=== PATIENT | male | born 1980 | race Caucasian/White ===

== ENCOUNTER 2018-02-10 07:46 | Day surgery (SDC) | payer BC ==
[~2018-02-10 07:46] MED LIST: LIDOCAINE 2% (SDV) 5 ML INJ
[2018-02-10] MEDS ORDERED: ROPIVACAINE 0.5 % 30 ML VIAL ×2 (09:09→09:42)
[2018-02-10] MEDS ORDERED: MIDAZOLAM 1 MG/ML 2 ML INJ ×2 (09:41→09:43)
[2018-02-10] MEDS ORDERED: hydrALAzine 20 MG INJ IV (10:00)
[2018-02-10] MEDS ORDERED: MIDAZOLAM 1 MG/ML 2 ML INJ IV (10:00)
[2018-02-10] MEDS ORDERED: METOCLOPRAMIDE 10 MG INJ IV (10:00)
[2018-02-10] MEDS ORDERED: DIPHENHYDRAMINE 50 MG INJ IV (10:00)
[2018-02-10] MEDS ORDERED: HYDROmorphONE (0.2 MG/ML) 10ML SYG IV ×3 (10:00)
[2018-02-10] MEDS ORDERED: FENTAnyl 50 MCG/ML VIAL IV ×3 (10:00)
[2018-02-10] MEDS ORDERED: LABETALOL HCL 20MG INJ IV (10:00)
[2018-02-10] MEDS ORDERED: OXYCODONE/ACETAMINOPHEN (5/325) TAB PO ×2 (10:00)
[2018-02-10] MEDS ORDERED: ALBUTEROL 0.083% (NEB) 2.5 MG/3 ML AMP HHN (10:00)
[2018-02-10] MEDS ORDERED: EPHEDrine SULFATE 50 MG/5 ML SYG IV (10:00)
[2018-02-10] MEDS: POLYMYXIN/BACITRACIN 1L IRRIG (12:20)
[2018-02-10] MEDS ORDERED: LABETALOL HCL 20MG INJ (14:08)
[2018-02-10] MEDS: VANCOMYCIN 1 GM INJ (14:30)
[2018-02-10] MEDS: NEOMYC/POLYMYX/BACIT 30 GM OINT (14:30)
[2018-02-10] MEDS ORDERED: SUGAMMADEX SODIUM 200 MG/2 ML VIAL IV (14:36)
[2018-02-10] MEDS ORDERED: ROCURONIUM 50 MG INJ (14:36)
[2018-02-10] MEDS ORDERED: PROPOFOL 20 ML (14:37)
[2018-02-10] MEDS ORDERED: CEFAZOLIN 1 GM INJ (14:37)
[2018-02-10] MEDS ORDERED: MEPERIDINE 25 MG INJ (14:51)
[2018-02-10] MEDS ORDERED: ONDANSETRON 4 MG INJ (14:52)
[2018-02-10] MEDS: ONDANSETRON 4 MG INJ IV (15:17)
[2018-02-10] MEDS: MEPERIDINE 25 MG INJ IV (15:17)
[2018-02-10] MEDS: KETOROLAC 30 MG INJ IV (15:18)
[2018-02-10] MEDS: oxyCODONE 5 MG TAB PO (15:46)
[2018-02-10] MEDS ORDERED: morphine 2 MG INJ IV (16:00)
[2018-02-10] MEDS ORDERED: morphine 10 MG INJ IV (16:00)
== END 2018-02-10 16:36 | disposition home or self-care (01) ==
LOC: SDS 07:46
DX: S92.061A Displaced intraarticular fracture of right calcaneus, initial encounter for closed fracture (principal); X58.XXXA Exposure to other specified factors, initial encounter; I10 Essential (primary) hypertension
CPT/HCPCS: 28415; 73650; 82306